=== PATIENT | male | born 1950 | race Caucasian/White ===

== ENCOUNTER → 2018-05-05 | Outpatient (CLI) | payer BC ==
--- NOTE | 2018-05-05 16:40 | KCIC ---
Carotid doppler ultrasound History: Smoker, amaurosis fugax Multiple grayscale, color, and duplex spectral analysis waveform sonographic images were acquired of the carotid, subclavian, and vertebral arteries. Comparison: None Findings: RIGHT: PSV cm/sec EDV cm/sec Common carotid artery 116 28 Maximal internal carotid artery 109 26 External carotid artery 126 Vertebral artery 34 ICA/CCA ratio 0.92 LEFT: PSV cm/sec EDV cm/sec Common carotid artery 87 23 Maximum internal carotid artery 88 40 External carotid artery 138 Vertebral artery 43 ICA/CCA ratio 0.72 Velocities used to determine stenosis are known to correlate with NASCET angiographic criteria. There is antegrade flow in the bilateral vertebral arteries. No significant focal stenosis is demonstrated on grayscale or color images, minimal plaque of the proximal left internal carotid artery. Incidental note is made of bilateral thyroid nodules, about 0.7 cm on the right and 1.1 cm on the left. Impression: 1. There is no evidence of a hemodynamically significant stenosis. 2. There are bilateral thyroid nodules. Electronically signed by: Ambrocio Gupta MD (05/05/2018 4:36 PM) [id number]
== END | disposition home or self-care (01) ==
LOC: KCIC US 15:09
PROVIDERS: ATTEND Family Medicine
DX: G45.3 Amaurosis fugax (principal); E04.2 Nontoxic multinodular goiter; Z87.891 Personal history of nicotine dependence
CPT/HCPCS: 93880

== ENCOUNTER → 2018-05-21 | Outpatient (CLI) | payer BC ==
--- NOTE | 2018-05-21 14:36 | CARD ---
MR#: [id number] Date of Study: 05/21/2018 Ordering Physician: RADHA SPIVEY, Referring Physician: RADHA SPIVEY, Tech: Lea Rowe [facility] APPROVED REPORT EXAM: Two-dimensional and M-mode echocardiogram with Doppler and color Doppler. Other Information Quality : AverageHR: 80bpm Rhythm : NSR with PVC's INDICATION Amaurosis Fugax of left eye 2D DIMENSIONS RVDd3.1 (2.9-3.5cm)IVSd1.0 (0.7-1.1cm) Aortic Root(2D)3.4 (2.0-3.7cm)LVDd5.2 (3.9-5.9cm) LVOT Diameter2.1 (1.8-2.4cm)PWd0.9 (0.7-1.1cm) LVDs3.7 (2.5-4.0cm)FS (%) 29.1 % SV73.3 mlLVEF(%)55.5 (>50%) M-Mode DIMENSIONS Left Atrium(MM)3.48 (2.5-4.0cm)Aortic Root3.63 (2.2-3.7cm) Aortic Valve AoV Peak Matthew.116.3cm/sAoV VTI21.8cm AO Peak GR.5.4mmHgLVOT Peak Matthew.78.3cm/s AO Mean GR.3mmHgAVA (VMAX)2.39cm2 KODY (VTI)2.40cm2 Mitral Valve MV E Nicavitl60.8cm/sMV DECEL [id number] MV A Rxnfxwxr44.0cm/sE/A Ratio0.9 MV A [id number] Pulmonary Valve PV Peak Oxykbiol12.8cm/s LEFT VENTRICLE The left ventricle is normal size. There is normal left ventricular wall thickness. The left ventricu lar systolic function is normal. The Ejection Fraction is 55-60%. There is normal LV segmental wall m otion. Transmitral Doppler flow pattern is Grade I-abnormal relaxation pattern. RIGHT VENTRICLE The right ventricle is normal size. There is normal right ventricular wall thickness. The right ventr icular systolic function is normal. ATRIA The left atrium size is normal. The right atrium is mildly dilated. The interatrial septum is intact with no evidence for an atrial septal defect or patent foramen ovale as noted on 2-D or Doppler imagi ng. AORTIC VALVE The aortic valve is normal in structure and function. The aortic valve is trileaflet. Doppler and Col or Flow revealed no significant aortic regurgitation. There is no significant aortic valvular stenosi s. MITRAL VALVE The mitral valve is normal in structure and function. There is no evidence of mitral valve prolapse. There is no mitral valve stenosis. Doppler and Color Flow revealed no mitral valve regurgitation note d. TRICUSPID VALVE The tricuspid valve is normal in structure and function. Doppler and Color Flow revealed no tricuspid valve regurgitation noted. There is no tricuspid valve prolapse or vegetation. There is no tricuspid valve stenosis. PULMONIC VALVE Pulmonic valve not well visualized. GREAT VESSELS The aortic root is normal in size. The ascending aorta is normal in size. The IVC is normal in size a nd collapses >50% with inspiration. PERICARDIAL EFFUSION There is no evidence of significant pericardial effusion. Critical Notification Critical Value: No <Conclusion> The left ventricular systolic function is normal. The Ejection Fraction is 55-60%. There is normal LV segmental wall motion. No significant valvular abnormalities. There is no evidence of significant pericardial effusion. Signed by : Francois Flower, Electronically Approved : 05/21/2018 14:35:00
== END | disposition home or self-care (01) ==
LOC: ECHO 13:37
PROVIDERS: ATTEND Family Medicine
DX: G45.3 Amaurosis fugax (principal)
CPT/HCPCS: 93306

== ENCOUNTER → 2020-04-12 | Outpatient (CLI) | payer BC ==
--- NOTE | 2020-04-12 16:35 | KCIC ---
CT LOW DOSE LUNG SCREENING Indication: Lung cancer screening, 50+ years smoker Technique: Noncontrast CT imaging was performed of the chest as per low dose screening protocol, multiplanar reconstruction images submitted. One or more of the following individualized dose reduction techniques were utilized for this examination: 1. Automated exposure control 2. Adjustment of the mA and/or kV according to patient size 3. Use of iterative reconstruction technique. Comparison: None Findings: There is a tiny 2 mm right lower lobe endobronchial nodule image 234 series 6. There is 2 to 3 mm noncalcified right upper lobe nodule image 59 series 6. There is 3 to 4 mm left upper lobe nodule image 206 series 6. There are some calcified right lower lobe nodules. There is no pleural or pericardial fluid, pneumothorax, or infiltrate. There is some coronary calcification. Thoracic aortic caliber is within normal limits. No significantly enlarged nodes are identified of the chest. There is diffuse, at least mild esophageal wall thickening. IMPRESSION: 1. There is tiny right lower lobe endobronchial nodule, some other small nodules present. Lung RADS category 4A, 3 month low-dose CT follow-up recommended given the endobronchial location. 2. There is nonspecific diffuse esophageal wall thickening, could be seen with esophagitis. 3. There is some coronary calcification. Electronically signed by: Ambrocio Gupta MD (04/12/2020 4:32 PM) [facility]PITALFelicia
== END ==
LOC: KCIC CT 15:20
PROVIDERS: ATTEND Family Medicine
DX: Z12.2 Encounter for screening for malignant neoplasm of respiratory organs (principal); R91.8 Other nonspecific abnormal finding of lung field; K22.8 Other specified diseases of esophagus; Z87.891 Personal history of nicotine dependence
CPT/HCPCS: G0297

== ENCOUNTER → 2020-10-16 | Outpatient (CLI) | payer BC, OTHER ==
--- NOTE | 2020-10-16 16:13 | RAD ---
EXAM: Chest CT without intravenous contrast. HISTORY: Pulmonary nodule. TECHNIQUE: Computed tomographic images of the chest were obtained without contrast. Multiplanar refor matting was performed. *One or more of the following individualized dose reduction techniques were utilized for this examina tion: 1. Automated exposure control. 2. Adjustment of the mA and/or kV according to patient size. 3. Use of iterative reconstruction technique. COMPARISON: 04/12/2020. FINDINGS: There are a few tiny noncalcified pulmonary nodules. This includes a 2 mm nodule within the right upper lobe (series 8, image 92), a 2 mm nodule within the right lung apex processes series 8, image 29), a 3 mm nodule within the left upper lobe (series 8, image 135), and a 6 mm nodule within t he lingula (series 8, image 178). The previously described tiny right lower lobe endobronchial nodule is no longer seen, likely due to uncleared secretions in this location on the prior study. There are similar appearing suspected secre tions within the adjacent bronchus on the current exam. There is no pleural effusion or pneumothorax. There is minimal emphysema with biapical subpleural bleb formation. The heart is normal in size. The aorta is normal in caliber. There is calcified atherosclerotic plaqu e involving the coronary arteries. There is no lymphadenopathy. There are few scattered calcified gra nulomas. There is no acute finding involving the upper abdomen. There is no suspicious osseous lesion . IMPRESSION: 1. Small bilateral pulmonary nodules, the largest of which measures 6 mm within the lingula and a sta ble appearance. No convincing new nodule is seen. Follow-up can be performed in one year. 2. Emphysema. Electronically signed by: Judie Duff MD (10/16/2020 4:10 PM) [id number]
== END ==
LOC: CT 15:12
PROVIDERS: ATTEND Family Medicine
DX: J43.9 Emphysema, unspecified (principal); R91.1 Solitary pulmonary nodule; N63.10 Unspecified lump in the right breast, unspecified quadrant; I25.10 Atherosclerotic heart disease of native coronary artery without angina pectoris
CPT/HCPCS: 71250